=== PATIENT | female | born 1980 | race Two or more races ===

== ENCOUNTER 2021-02-16 09:08 | Outpatient (CLI) | payer OTHER | END 2021-02-16 09:10 | disposition home or self-care (01) | LOC: LAB 09:08 | PROVIDERS: ATTEND Surgery | DX: D68.69 Other thrombophilia (principal) ==

== ENCOUNTER 2021-04-30 10:55 | Day surgery (SDC) | payer OTHER ==
[2021-04-30] MEDS ORDERED: MIRALAX17 GM PO (16:25)
[2021-04-30] MEDS ORDERED: ULTRAM50 MG PO (16:25)
[2021-04-30] MEDS ORDERED: TYLENOL ARTHRI650 MG PO (16:25)
== END 2021-04-30 21:05 | disposition home or self-care (01) ==
LOC: CIR.AMB 10:55
PROVIDERS: ATTEND Surgery
DX: K42.9 Umbilical hernia without obstruction or gangrene (principal); K80.20 Calculus of gallbladder without cholecystitis without obstruction; Z20.822 Contact with and (suspected) exposure to COVID-19